=== PATIENT | female | born 1995 | race Caucasian/White ===

== ENCOUNTER 2016-08-03 13:06 | Outpatient (CLI) | payer MEDICAID ==
[2016-08-03] MEDS ORDERED: LACTATED RINGERS 500 ML IV ONE (13:48)
[2016-08-03 14:57] LABS: Bilirubin,Urine NEG (Negative); Blood,Urine NEG (Negative); Ketones,Urine NEG (Negative); Leukocyte Esterase,Urine NEG (Negative); Nitrite,Urine NEG (Negative); Protein,Urine <15 mg/dL mg/dL (Negative); Urobilinogen,Urine < 2.0 mg/dL (<2.0); WBC,Urine < 1.0 /HPF (0.0-6.0)
[2016-08-03 15:58] VITALS: BP 112/56
== END 2016-08-03 16:40 | disposition home or self-care (01) ==
LOC: TRG 13:06 → LD 14:29 → TRG 15:18
PROVIDERS: ATTEND Obstetrics & Gynecology
DX: O47.9 False labor, unspecified (principal); Z3A.00 Weeks of gestation of pregnancy not specified
CPT/HCPCS: 81001; 96360; 96361; J7120

== ENCOUNTER 2016-09-13 22:04 | Inpatient (IN) | payer MEDICAID ==
[~2016-09-13 22:04] MED LIST: NACL 0.9% IR ONE; WATER FOR IRRIG STERILE IR ONE
[2016-09-13] MEDS ORDERED: LACTATED RINGERS 1,000 ML ONE (22:17)
[2016-09-13] MEDS ORDERED: BICITRA ONE (22:53)
[2016-09-13] MEDS ORDERED: PITOCin/NS 20 UNIT/1000ML DRIP 20,000 MILLIUNITS/1,000 ML BAG IV ONE (22:53)
[2016-09-13] MEDS ORDERED: REGLAN ONE (22:54)
[2016-09-13] MEDS ORDERED: PEPCID IV ONE (22:54)
[2016-09-13] MEDS ORDERED: LACTATED RINGERS 1,000 ML IV SCH (23:00)
--- NOTE | 2016-09-13 23:02 | Anesthesia Day of Surgery ---
Anesthesia Day of Surgery - Day of Surgery Patient Examined: Yes Patient H&P Reviewed: Yes Patient is NPO: No (Will proceed due to urgency of surgery)
--- NOTE | 2016-09-13 23:02 | Anesthesia Consultation ---
Anesthesia Consult and Med Hx Date of service: 09/13/16 - Airway Anesthetic Teeth Evaluation: Good ROM Head & Neck: Adequate Mental/Hyoid Distance: Adequate Mallampati Class: Class II Intubation Access Assessment: Probably Good - Pulmonary Exam CTA: Yes - Cardiac Exam Cardiac Exam: RRR - Pre-Operative Health Status ASA Pre-Surgery Classification: ASA2 Proposed Anesthetic Plan: Epidural, Spinal - Pulmonary Hx Smoking: No Hx Asthma: Yes (as child) COPD: No Hx Pneumonia: No - Cardiovascular System Hx Hypertension: No - Central Nervous System Hx Seizures: No Hx Psychiatric Problems: No - Endocrine Hx Renal Disease: No Hx End Stage Renal Disease: No Hx Hypothyroidism: No Hx Hyperthyroidism: No - Hematic Hx Anemia: No Hx Sickle Cell Disease: No - Other Systems Hx Alcohol Use: No Hx Obesity: Yes
[2016-09-13 23:07] LABS: Basophils % (Auto) 0.2 % (0.0-1.8); Eosinophils % (Auto) 0.4 % (0.0-4.3); Hematocrit 35.4 % (30.3-42.9); Hemoglobin 11.8 gm/dl (10.1-14.3); Mean Corpuscular HGB Conc 33 % (30-34); Mean Corpuscular Hemoglobin 26 pg (28-32); Mean Corpuscular Volume 79 fl (79-97); Platelet Count 247 K/mm3 (140-440); Red Blood Count 4.48 M/mm3 (3.65-5.03); Red Cell Distribution Width 14.3 % (13.2-15.2); White Blood Count 12.6 K/mm3 (4.5-11.0)
[2016-09-13] MEDS ORDERED: ANCEF/STERILE WATER 2 GM/20 ML IV ONE (23:30)
[2016-09-13] MEDS ORDERED: MORPHINE ONE (23:30)
[2016-09-14] MEDS ORDERED: WATER FOR IRRIG STERILE IR ONE
[2016-09-14] MEDS ORDERED: NACL 0.9% IR ONE
[2016-09-14] MEDS ORDERED: ePHEDrine SULFATE ONE (00:02)
[2016-09-14] MEDS ORDERED: ZOFRAN ONE (00:06)
[2016-09-14] MEDS ORDERED: TORADOL ONE (00:49)
--- NOTE | 2016-09-14 01:05 | History and Physical Report ---
History of Present Illness Date of examination: 09/14/16 Date of admission: 09/13/16 23:16 Chief complaint: Rupture of membranes History of present illness: Pt is a 21yo HF EDC 09/16/16; EGA 39 5/7 weeks presents to L&D complaining of SROM @ 2200 followed by irregular contractions. She was scheduled for a Repeat C Section in the morning and received care at [facility]. records are not available and GBS is unknown. Past History Past Medical History: other (Morbid obesity) Past Surgical History: appendectomy, cholecystectomy, section (x2) Family/Genetic History: none Social history: no significant social history, single - Obstetrical History Expected Date of Delivery: 09/16/16 Actual Gestation: 39 Week(s) 5 Day(s) : 4 Medications and Allergies Allergies Allergy/AdvReac Type Severity Reaction Status Date / Time No Known Allergies Allergy Unverified 11/25/13 12:27 Home Medications Medication Instructions Recorded Confirmed Last Taken Type Vit-Fe Fumar-FA [ 1 each PO QDAY 11/26/13 06/20/15 Unknown History Vitamin] Ibuprofen [Motrin 600 MG tab] 600 mg PO Q6H PRN #30 tablet 11/27/13 06/20/15 Unknown Rx Vit-Fe Fumar-FA [ 1 each PO QDAY #60 tablet 11/27/13 06/20/15 Unknown Rx Vitamin] oxyCODONE /ACETAMINOPHEN [Percocet 1 tab PO Q6H PRN #30 tablet 11/27/13 Unknown Rx 5/325 mg] Acetaminophen [Acetaminophen 325 mg NM Q4HR PRN #30 supp 06/20/15 Unknown Rx SUPPOS] Ferrous Sulfate [Feosol 325 MG tab] 325 mg PO QDAY #60 tablet 06/20/15 Unknown Rx Active Meds: Active Medications Lactated Ringer's (Lactated Ringers) 1,000 mls @ 125 mls/hr IV DIRECT ALLI Review of Systems All systems: negative - Vital Signs Vital signs: Vital Signs Pulse Pulse Ox 97 H 99 09/13/16 22:09 09/13/16 22:09 Temp Pulse Resp BP Pulse Ox 98.1 F 96 H 18 147/86 97 09/13/16 22:17 09/13/16 23:11 09/13/16 22:17 09/13/16 22:17 09/13/16 23:11 - Physical Exam Breasts: Positive: deferred Cardiovascular: Regular rate Lungs: Positive: Clear to auscultation Abdomen: Positive: normal appearance Genitourinary (Female): Positive: normal external genitalia Uterus: Positive: enlarged Extremities: Positive: normal - Obstetrical FHR: category 1 Uterine Contraction Monitor Mode: External Results Result Diagrams: 09/13/16 22:40 Abnormal lab results 09/13/16 Range/Units 22:40 WBC 12.6 H (4.5-11.0) K/mm3 MCH 26 L (28-32) pg Seg Neutrophils % 77.7 H (40.0-70.0) % Seg Neutrophils # 9.8 H (1.8-7.7) K/mm3 All other labs normal. Assessment and Plan - Patient Problems (1) 39 weeks gestation of Onset Date: 09/14/16 Current Visit: Yes Status: Acute Plan to address problem: A: IUP @ 39 5/7 weeks in labor Previous C Section Morbid obesity Unknown GBS P: Admit to L&D for repeat C Section Obtain records (2) Previous delivery affecting Onset Date: 09/14/16 Current Visit: Yes Status: Acute (3) Morbid obesity Onset Date: 09/14/16 Current Visit: Yes Status: Acute Qualifiers: Obesity type: O
[2016-09-14] MEDS ORDERED: TORADOL IV PRN (01:09)
[2016-09-14] MEDS ORDERED: NORCO 5/325 PO PRN (01:09)
[2016-09-14] MEDS ORDERED: PHENERGAN PR PRN (01:09)
[2016-09-14] MEDS ORDERED: MILK OF MAGNESIA PO PRN (01:09)
[2016-09-14] MEDS ORDERED: LANSINOH TP PRN (01:09)
[2016-09-14] MEDS ORDERED: TUCKS PAD TP PRN (01:09)
[2016-09-14] MEDS ORDERED: NARCAN 0.4 MG/1 ML IV PRN ×2 (01:09→01:28)
[2016-09-14] MEDS ORDERED: ZOFRAN IV PRN (01:09)
[2016-09-14] MEDS ORDERED: SENOKOT PO PRN (01:09)
[2016-09-14] MEDS ORDERED: TYLENOL PO PRN (01:09)
[2016-09-14] MEDS ORDERED: MYLICON PO PRN (01:09)
--- NOTE | 2016-09-14 01:24 | Operative Report ---
Operative Report Operative Report: Date of procedure: 09/14/2016 Pre-operative diagnosis: 1. Intrauterine at 39 and 4/7 weeks in labor 2. Meconium fluid 3. Previous section 2 4. Morbid obesity Post-operative diagnosis: Same Procedure name(s): Repeat low transverse section Surgeon: Scott Short MD Special Education Para Professional: None Anesthesia: Spinal anesthesia by Dr. Saranya Vila EBL: 600 mL's Findings: A 4076 g female infant Apgars 8 at 1 minute 9 at 5 minutes. Thick meconium fluid. Normal uterus with lower uterine segment adhesions. Normal tubes and ovaries bilaterally. Procedure: After the patient was prepped and draped in usual sterile fashion, and after satisfactory level of epidural anesthesia was obtained, the skin knife was used to make a transverse skin incision through the previous skin scar. The incision was excised down to layer of the fascia, which was nicked in the midline and extended laterally using the Bovie cautery. The rectus muscles were dissected off the rectus fascia both superiorly and inferiorly. The rectus bellies in the midline, and the peritoneum was entered under direct visualization. The peritoneal incision was extended superiorly and inferiorly. A bladder flap was created and the bladder blade was then placed. The uterus was scored in a curvilinear linear fashion, entered in the midline revealing thick meconium amniotic fluid. The infant's head was delivered onto the surgical field with the aid of a vacuum, (2 pulls 1 pop-off) , and the oropharynx and nasopharynx were bulb suctioned. The rest of the infant's body was delivered, cord was doubly clamped and cut and the was handed to the waiting respiratory team. Cord blood was then obtained. The placenta was manually removed from the uterus, and the uterus removed from its normal anatomical position. After gentle uterine lavage, the incision was inspected and found to be without extensions. It was then closed in 2 layers using 0 Vicryl suture in a running interlocking fashion, the second layer imbricating the first. After good hemostasis was achieved, copious amounts or irrigation was performed, and the gutters were suctioned free of blood and blood clots. The Tisseel sealant was sprayed across the uterine incision. The uterus was then returned to its normal anatomical position, and after excellent hemostasis assured, the peritoneum was reapproximated using 3-0 Vicryl suture in a running interlocking fashion, and then the rectus muscles were reapproximated using 3-0 Vicryl suture in a [id number] configuration. The fascia was then reapproximated using 0 Vicryl suture in running interlocking fashion. The subcutaneous layer was made hemostatic using Bovie cautery, the Tisseel sealant was sprayed across the fascial incision and the skin edges reapproximated using 4-0 Vicryl suture in a subcuticular fashion. Patient tolerated the procedure well was transported to recovery in stable condition.
--- NOTE | 2016-09-14 01:28 | Post Anesthesia Evaluation ---
- Post Anesthesia Evaluation Patient Participated: Yes Airway Patent: Yes Stable Respiratory Function: Yes Nausea/Vomiting: No Temp > 96.8F: Yes Pain Manageable: Yes Adequeate Hydration: Yes Anesthesia Complications: No Block Receding Appropriately: Yes Patient on Ventilator: No
[2016-09-14] MEDS ORDERED: SODIUM CHLORIDE FLUSH SYRINGE 10 ML IV NR (02:00)
[2016-09-14] MEDS ORDERED: SODIUM CHLORIDE FLUSH SYRINGE 10 ML IV PRN (02:00)
[2016-09-14] MEDS ORDERED: PITOCin/NS 20 UNIT/1000ML DRIP 20 UNITS/1,000 ML BAG IV SCH (02:00)
[2016-09-14 05:39] LABS: Alanine Aminotransferase 20 units/L (7-56); Lactate Dehydrogenase 255 units/L (91-180); Uric Acid 5.5 mg/dL (3.5-7.6)
[2016-09-14 06:42] LABS: Bilirubin,Urine NEG (Negative); Blood,Urine SM (Negative); Ketones,Urine 20 mg/dL (Negative); Leukocyte Esterase,Urine TR (Negative); Mucus,Urine 3+ /HPF; Nitrite,Urine NEG (Negative)
[2016-09-14] MEDS: ANCEF/NS 1 GM/50 ML 1 GM/50 ML BAG IV SCH ×2 (07:34→15:04)
[2016-09-14] MEDS ORDERED: LACTATED RINGERS 1,000 ML IV SCH (09:00)
[2016-09-14] MEDS: PRENATAL VITAMIN PO SCH (10:53)
[2016-09-14] MEDS: FEOSOL PO SCH (10:53)
[2016-09-14 14:28] LABS: Hematocrit 30.4 % (30.3-42.9)
--- NOTE | 2016-09-14 14:40 | Progress Note ---
Subjective Date of service: 09/14/16 Interval history: The patient is 14 hours post c section. She states that she has not been able to ambulate yet. Some residual numbness from spinal in the left leg, however, states that the numbness has decreased from earlier today and has continued to get better. Right leg has no residual numbness. Patient is in no pain and has no other anesthetic complications. Objective - Constitutional Vitals: Vital Signs - 12hr 09/14/16 09/14/16 09/14/16 02:36 04:05 04:10 Temperature 98.2 F 98.0 F Pulse Rate 69 Pulse Rate [ 95 H 94 H From Monitor] Respiratory 24 20 20 Rate Blood Pressure 102/68 Blood Pressure 135/74 [Left Arm] Blood Pressure 115/60 [Right Arm] O2 Sat by Pulse 99 Oximetry 09/14/16 09/14/16 08:33 11:53 Temperature 98.3 F 98.8 F Pulse Rate Pulse Rate [ 88 88 From Monitor] Respiratory 20 20 Rate Blood Pressure Blood Pressure [Left Arm] Blood Pressure 110/66 104/50 [Right Arm] O2 Sat by Pulse Oximetry - Labs CBC & Chem 7: 09/14/16 14:03 09/13/16 22:40 Labs: Abnormal lab results 09/13/16 09/13/16 09/14/16 Range/Units 22:40 22:40 06:05 WBC 12.6 H (4.5-11.0) K/mm3 Hgb (10.1-14.3) gm/dl MCH 26 L (28-32) pg Seg Neutrophils % 77.7 H (40.0-70.0) % Seg Neutrophils # 9.8 H (1.8-7.7) K/mm3 Creatinine 0.5 L (0.7-1.2) mg/dL Lactate Dehydrogenase 255 H (91-180) units/L Ur Specific [place] 1.031 H (1.003-1.030) Urine WBC (Auto) 11.0 H (0.0-6.0) /HPF 09/14/16 Range/Units 14:03 WBC (4.5-11.0) K/mm3 Hgb 10.0 L (10.1-14.3) gm/dl MCH (28-32) pg Seg Neutrophils % (40.0-70.0) % Seg Neutrophils # (1.8-7.7) K/mm3 Creatinine (0.7-1.2) mg/dL Lactate Dehydrogenase (91-180) units/L Ur Specific [place] (1.003-1.030) Urine WBC (Auto) (0.0-6.0) /HPF
[2016-09-14] MEDS: MOTRIN PO PRN (17:52)
[2016-09-14] MEDS: PERCOCET 5/325 PO PRN (17:53)
[2016-09-15] MEDS: PERCOCET 5/325 PO PRN (00:37)
[2016-09-15] MEDS ORDERED: M-M-R II VACCINE SUB-Q ONE (01:10)
[2016-09-15] MEDS ORDERED: BOOSTRIX IM ONE (06:00)
--- NOTE | 2016-09-15 10:05 | Progress Note ---
Assessment and Plan POD 3 1 s/p Repeat LTCS -Doing well P: -Continue routine postop care -Anticipate discharge in 24-48 hours - Patient Problems (1) S/P repeat low transverse Current Visit: No Status: Acute Subjective - Subjective Date of service: 09/15/16 Principal diagnosis: POD # 1 Interval history: Patient seen and examined, stable doing well. No Chest pain or shortness of breath no fever chills adequate bowel bladder function Patient reports: appetite normal, voiding normally, pain well controlled, ambulating normally, no dizzy ambulation [place]: doing well Objective - Vital Signs Latest vital signs: Vital Signs Temp Pulse Resp BP BP 09/15/16 08:33 98.7 F 100 H 20 120/71 09/15/16 00:15 98.6 F 105 H 20 137/67 09/14/16 21:10 98.6 F 86 18 129/69 09/14/16 16:16 98.3 F 80 20 110/68 09/14/16 11:53 98.8 F 88 20 104/50 Intake and Output 09/14/16 09/15/16 09/15/16 22:59 06:59 14:59 Intake Total 720 360 Output Total 2700 400 Balance -1979 Intake: Oral 240 Intake, Free Water 480 360 Output: Urine 2700 400 Indwelling Catheter 500 Uretheral ([place]) 500 Void 1700 400 Other: Total, Intake Amount 240 Total, Output Amount 900 400 Voiding Method Toilet # Voids Void 1 1 - Exam Abdomen: Present: normal appearance, soft. Absent: distention, tenderness, guarding, mass, rigidity Uterus: Absent: tenderness Incision: Present: intact, dressed - Labs Labs: Abnormal lab results 09/14/16 Range/Units 14:03 Hgb 10.0 L (10.1-14.3) gm/dl
[2016-09-15] MEDS: PRENATAL VITAMIN PO SCH (10:06)
[2016-09-15] MEDS: FEOSOL PO SCH (10:06)
[2016-09-15] MEDS: MOTRIN PO PRN ×2 (10:06→15:57)
[2016-09-16] MEDS: PERCOCET 5/325 PO PRN ×2 (00:28→06:34)
--- NOTE | 2016-09-16 08:01 | Progress Note ---
Assessment and Plan POD 2 1 s/p Repeat LTCS -Doing well P: -Discharged home -Up in clinic in 2 weeks - Patient Problems (1) S/P repeat low transverse Current Visit: No Status: Acute Subjective - Subjective Date of service: 09/16/16 Principal diagnosis: POD # 2 Interval history: Patient seen and examined, stable doing well. No Chest pain or shortness of breath no fever chills adequate bowel bladder function Desires discharge home today Patient reports: appetite normal, voiding normally, pain well controlled, flatus , ambulating normally, no dizzy ambulation : doing well Objective - Vital Signs Latest vital signs: Vital Signs Temp Pulse Resp BP BP 09/16/16 00:00 98.6 F 72 22 144/70 09/15/16 15:58 98.5 F 97 H 20 117/81 09/15/16 08:33 98.7 F 100 H 20 120/71 Intake and Output 09/15/16 09/16/16 09/16/16 22:59 06:59 14:59 Intake Total 500 Balance 500 Intake: Oral 500 Other: Total, Intake Amount 500 # Voids Void 2 - Exam Lungs: Present: Clear to auscultation Abdomen: Present: normal appearance, soft. Absent: distention, tenderness, guarding, rigidity Uterus: Present: fundal height below umbilicus. Absent: tenderness Extremities: Present: normal Incision: Present: dry, intact
--- NOTE | 2016-09-16 08:03 | Discharge Summary ---
Providers - Providers Date of Admission: 09/13/16 23:16 Date of discharge: 09/16/16 Attending physician: SVETLANA HIGGINS Primary care physician: SVETLANA HIGGINS Hospitalization Reason for admission: section, rupture of membranes Delivery: Procedure: repeat low transverse Incision: dry, intact Other procedures: none complications: none Discharge diagnosis: IUP at term delivered [place] baby: female Hospital course: Uncomplicated hospital course Condition at discharge: Good Disposition: DISCHARGED TO HOME OR SELFCARE - Discharge Diagnoses (1) S/P repeat low transverse Status: Acute Plan - Discharge Medications Prescriptions: Ferrous Sulfate [Feosol 325 MG tab] 325 mg PO BID #60 tablet HYDROcodone/APAP 5-325 [[place] 5/325] 1 each PO Q6HR PRN #30 tablet PRN Reason: Pain Ibuprofen [Motrin] 800 mg PO Q8HR PRN #30 tablet PRN Reason: Moder Pain Unrelieved By [place] Vit W-Ca,Fe,FA(<1 mg) [ Vitamins] 1 each PO DAILY #30 tablet - Provider Discharge Summary Activity: no sex for 6 weeks, no heavy lifting 4 weeks, no strenuous exercise Diet: routine Additional instructions: [] Smoking cessation referral if applicable(refer to patient education folder for contact #) [] Refer to [facility]'s [facility] Booklet Call your doctor immediately for: * Fever > 100.5 * Heavy vaginal bleeding ( >1 pad per hour) * Severe persistent headache * Shortness of breath * Reddened, hot, painful area to leg or breast * Drainage or odor from incision. * Keep incision clean and dry at all times and follow doctor's instructions regarding bathing/showering - Follow up plan Follow up: SVETLANA HIGGINS MD [Primary Care Provider] - 14 Days
[2016-09-16 08:08] VITALS: BP 116/57
[2016-09-16] MEDS: PRENATAL VITAMIN PO SCH (09:43)
[2016-09-16] MEDS: FEOSOL PO SCH (09:44)
== END 2016-09-16 11:40 | disposition home or self-care (01) | DRG 765 ==
LOC: TRG 22:04 → APU 23:16 → OB 09-14 05:16 → EDSTATUS 09-14 11:30
PROVIDERS: ADMIT Obstetrics & Gynecology; ATTEND Obstetrics & Gynecology
PROC: 10D00Z1 Extraction of Products of Conception, Low, Open Approach (ICD-10-PCS; principal; 2016-09-14)
DX: O42.02 Full-term premature rupture of membranes, onset of labor within 24 hours of rupture (principal); Z68.43 Body mass index [BMI] 50.0-59.9, adult; O34.211 Maternal care for low transverse scar from previous cesarean delivery; O77.0 Labor and delivery complicated by meconium in amniotic fluid; O99.214 Obesity complicating childbirth; E66.01 Morbid (severe) obesity due to excess calories; Z3A.39 39 weeks gestation of pregnancy; Z37.0 Single live birth; Z90.49 Acquired absence of other specified parts of digestive tract
CPT/HCPCS: 36415; 81001; 82565; 83615; 84450; 84460; 84550; 85014; 85018; 85025; 86850; 86900; 86901; 99211; G0463; J0690; J1885; J2270; J2405; J2590; J2765; J7120

== ENCOUNTER 2019-04-22 06:06 | Inpatient (IN) | payer MEDICAID ==
[2019-04-22] MEDS ORDERED: BICITRA PO ONE (06:19)
[2019-04-22] MEDS ORDERED: PEPCID IV ONE (06:19)
[2019-04-22] MEDS ORDERED: REGLAN IV ONE (06:19)
[2019-04-22] MEDS ORDERED: LACTATED RINGERS 1,000 ML IV SCH (07:00)
[2019-04-22] MEDS ORDERED: ANCEF/STERILE WATER 2 GM/20 ML 2 GM/20 ML SYRINGE IV NR (07:00)
[2019-04-22] MEDS ORDERED: PITOCin/NS 20 UNIT/1000ML DRIP 20 UNITS/1,000 ML BAG IV SCH ×2 (07:00→12:00)
--- NOTE | 2019-04-22 07:03 | History and Physical Report ---
History of Present Illness Date of examination: 04/22/19 Date of admission: 04/22/19 06:06 Chief complaint: Repeat C Section History of present illness: Pt is a 23yo HF EDC 04/22/19; EGA 40 0/7 weeks presents for a Repeat C Section. She received care at [facility] since 20 weeks and co-managed by [facility] for Morbid Obesity and previous C Section x 3. records are available and GBS is Negative. Past History Past Medical History: other (Morbid obesity) Past Surgical History: appendectomy, cholecystectomy, section (x3) Family/Genetic History: none Social history: no significant social history, single - Obstetrical History Expected Date of Delivery: 04/22/19 Actual Gestation: 40 Week(s) 0 Day(s) : 4 Medications and Allergies Allergies Allergy/AdvReac Type Severity Reaction Status Date / Time No Known Allergies Allergy Unverified 11/25/13 12:27 Home Medications Medication Instructions Recorded Confirmed Last Taken Type Vit-Fe Fumar-FA [ 1 each PO QDAY 11/26/13 09/14/16 Unknown History Vitamin] Ibuprofen [Motrin 600 MG tab] 600 mg PO Q6H PRN #30 tablet 11/27/13 09/14/16 Unknown Rx Vit-Fe Fumar-FA [ 1 each PO QDAY #60 tablet 11/27/13 09/14/16 Unknown Rx Vitamin] oxyCODONE /ACETAMINOPHEN [Percocet 1 tab PO Q6H PRN #30 tablet 11/27/13 09/14/16 Unknown Rx 5/325 mg] Acetaminophen [Acetaminophen 325 mg [place] Q4HR PRN #30 supp 06/20/15 09/14/16 Unknown Rx SUPPOS] Ferrous Sulfate [Feosol 325 MG tab] 325 mg PO QDAY #60 tablet 06/20/15 09/14/16 Unknown Rx Ferrous Sulfate [Feosol 325 MG tab] 325 mg PO BID #60 tablet 09/14/16 Unknown Rx HYDROcodone/APAP 5-325 [[place] 1 each PO Q6HR PRN #30 tablet 09/14/16 Unknown Rx 5/325] Ibuprofen [Motrin] 800 mg PO Q8HR PRN #30 tablet 09/14/16 Unknown Rx Vit Calc,Iron,Folic 1 each PO DAILY #30 tablet 03/17/17 Unknown Rx [ Vitamins] Review of Systems All systems: negative - Vital Signs Vital signs: Vital Signs Pulse BP 80 115/63 04/22/19 06:49 04/22/19 06:49 Temp Pulse Resp BP Pulse Ox 80 115/63 04/22/19 06:49 04/22/19 06:49 - Physical Exam Breasts: Positive: deferred Cardiovascular: Regular rate Lungs: Positive: Clear to auscultation Abdomen: Positive: normal appearance Genitourinary (Female): Positive: normal external genitalia Vagina: Positive: normal moisture Uterus: Positive: enlarged Extremities: Positive: normal - Obstetrical FHR: category 1 Uterine Contraction Monitor Mode: External Uterine Contraction Pattern: Absent Results Result Diagrams: 04/22/19 07:00 All other labs normal. Assessment and Plan - Patient Problems (1) 40 weeks gestation of Onset Date: 04/22/19 Current Visit: Yes Status: Acute Plan to address problem: A: IUP @ 40 0/7 weeks Previous C Section x 3 Morbid Obesity P: Admit to L&D for Repeat C Section (2) Morbid obesity Onset Date: 04/22/19 Current Visit: No Status: Chronic (3) Previous delivery affecting Onset Date: 04/22/19 Current Visit: No Status: Chronic
[2019-04-22] MEDS ORDERED: DEXMEDETOMIDINE IV ONE (07:18)
[2019-04-22 07:31] LABS: Basophils % (Auto) 0.3 % (0.0-1.8); Eosinophils # (Auto) 0.1 K/mm3 (0.0-0.4); Eosinophils % (Auto) 0.9 % (0.0-4.3); Hematocrit 38.3 % (30.3-42.9); Lymphocytes # (Auto) 1.9 K/mm3 (1.2-5.4); Lymphocytes % (Auto) 20.5 % (13.4-35.0); Mean Corpuscular HGB Conc 34 % (30-34); Mean Corpuscular Volume 83 fl (79-97); Monocytes # (Auto) 0.5 K/mm3 (0.0-0.8); Monocytes % (Auto) 5.2 % (0.0-7.3); Platelet Count 173 K/mm3 (140-440); Red Blood Count 4.61 M/mm3 (3.65-5.03); Red Cell Distribution Width 14.1 % (13.2-15.2)
--- NOTE | 2019-04-22 07:33 | Anesthesia Day of Surgery ---
Anesthesia Day of Surgery - Day of Surgery Patient Examined: Yes Patient H&P Reviewed: Yes Patient is NPO: Yes Beta Blockers: No Cardiac Clearance: No Pulmonary Clearance: No Choco's Test: N/A
[2019-04-22] MEDS ORDERED: SODIUM CHLORIDE FLUSH SYRINGE 10 ML IV PRN (08:00)
[2019-04-22] MEDS ORDERED: DILAUDID IV PRN ×2 (08:30)
[2019-04-22] MEDS ORDERED: NALOXONE IV PRN ×2 (08:30→11:45)
[2019-04-22] MEDS ORDERED: BENADRYL IV PRN (08:30)
[2019-04-22] MEDS ORDERED: ZOFRAN IV PRN (08:30)
[2019-04-22] MEDS ORDERED: WATER FOR IRRIG STERILE IR ONE (10:25)
[2019-04-22] MEDS ORDERED: NACL 0.9% IR ONE (10:25)
[2019-04-22] MEDS ORDERED: TORADOL ONE (11:07)
[2019-04-22] MEDS ORDERED: ZOFRAN ONE (11:07)
[2019-04-22] MEDS ORDERED: NEO SYNEPHRINE ONE (11:07)
--- NOTE | 2019-04-22 11:41 | Operative Report ---
Operative Report Operative Report: Date of procedure: 04/22/2019 Pre-operative diagnosis: 1. Intrauterine at 40 0/7 weeks 2. Previ ous C Section x 3 Post-operative diagnosis: Same with lower uterine segment adhesions Procedure name(s): Repeat low transverse section Surgeon: Scott Short MD Concrete Spreader: None Anesthesia: Spinal anesthesia by Nilam Roach CRNA EBL: 600 mL's Findings: A 3979 gm male infant Apgars 8 at 1 minute and 9 at 5 minutes. Clear amniotic fluid. Normal uterus with lower uterine segment adhesions and normal tubes and ovaries bilaterally. Procedure: After the patient was prepped and draped in usual sterile fashion, and after a satisfactory level of spinal anesthesia was obtained, the skin knife was used to make a transverse skin incision through the previous skin scars. The incision was excised down to layer of the fascia, which was nicked in the midline and extended laterally using the Bovie cautery. The rectus muscles were dissected off the rectus fascia both superiorly and inferiorly. The rectus bellies in the midline, and the peritoneum was entered under direct visualization. The peritoneal incision was extended superiorly and inferiorly. The uterus was scored in a curvilinear linear fashion, entered in the midline revealing clear amniotic fluid. The 's head was delivered onto the surgical field with the aid of a vacuum and extension of the uterine incision with bandage scissors, and the oropharynx and nasopharynx were bulb suctioned. The rest of the infant's body was delivered, cord was doubly clamped and cut and the infant was handed to the waiting respiratory team. Cord blood was then obtained. The placenta was manually removed from the uterus and the uterus removed from its normal anatomical position. After gentle uterine lavage, the incision was inspected and found no further extensions. It was then closed in 2 layers using 0 Vicryl suture in a running interlocking fashion, the second layer imbricating the first. After good hemostasis was achieved, copious amounts or irrigation was performed, and the gutters were suctioned free of blood and blood clots. The Tisseal sealant was sprayed across the uterine incision and excellent hemostasis was assured. The uterus was then returned to its normal anatomical position, and after excellent hemostasis assured, the peritoneum was re-approximated using 3-0 Vicryl suture in a running interlocking fashion, and then the rectus muscles were re-approximated using 3-0 Vicryl suture in a [id number] configuration. The fascia was then re-approximated using 0 Vicryl suture in running interlocking fashion. The subcutaneous layer was made hemostatic using Bovie cautery and re-approximated using 3-0 vicyl suture, then the skin edges re-approximated using 4-0 Vicryl suture in a sub-cuticular fashion. Patient tolerated the procedure well was transported to recovery in s table condition.
[2019-04-22] MEDS ORDERED: TYLENOL PO PRN (11:45)
[2019-04-22] MEDS ORDERED: SENOKOT PO PRN (11:45)
[2019-04-22] MEDS ORDERED: MYLICON PO PRN (11:45)
[2019-04-22] MEDS ORDERED: MILK OF MAGNESIA PO PRN (11:45)
[2019-04-22] MEDS ORDERED: LANSINOH TP PRN (11:45)
[2019-04-22] MEDS ORDERED: NORCO 5/325 PO PRN (11:45)
[2019-04-22] MEDS ORDERED: TUCKS PAD TP PRN (11:45)
--- NOTE | 2019-04-22 11:55 | Post Anesthesia Evaluation ---
- Post Anesthesia Evaluation Patient Participated: Yes Nausea/Vomiting: No Temp > 96.8F: Yes Pain Manageable: Yes Adequeate Hydration: Yes Anesthesia Complications: No Block Receding Appropriately: Yes Patient on Ventilator: No
[2019-04-22] MEDS ORDERED: D5LR 1,000 ML IV SCH (12:00)
[2019-04-22] MEDS ORDERED: SODIUM CHLORIDE FLUSH SYRINGE 10 ML IV SCH (12:00)
[2019-04-22] MEDS: TORADOL IV PRN ×2 (16:55→23:14)
[2019-04-22] MEDS: ANCEF/NS 1 GM/50 ML 1 GM/50 ML BAG IV SCH (23:17)
[2019-04-22 23:50] LABS: Hematocrit 32.2 % (30.3-42.9); Hemoglobin 11.3 gm/dl (10.1-14.3)
[2019-04-23] MEDS: PERCOCET 5/325 PO PRN ×4 (00:03→20:03)
[2019-04-23] MEDS: TORADOL IV PRN ×3 (04:16→17:23)
[2019-04-23] MEDS ORDERED: BOOSTRIX IM ONE (06:00)
[2019-04-23] MEDS: ANCEF/NS 1 GM/50 ML 1 GM/50 ML BAG IV SCH (06:03)
--- NOTE | 2019-04-23 08:45 | Progress Note ---
Assessment and Plan - Patient Problems (1) 40 weeks gestation of Onset Date: 04/22/19 Current Visit: Yes Status: Resolved (2) Morbid obesity Onset Date: 04/22/19 Current Visit: No Status: Chronic (3) Previous delivery affecting Onset Date: 04/22/19 Current Visit: No Status: Chronic (4) S/P repeat low transverse Onset Date: 04/23/19 Current Visit: No Status: Resolved Plan to address problem: A: S/P Repeat C Section - POD #1 Doing well Asymptomatic anemia - stable P: Continue RPOC Anticipate discharge in 24-48hrs Subjective - Subjective Date of service: 04/23/19 Principal diagnosis: s/p Repeat C Section - POD #1 Interval history: Pt is feeling well without complaints. Bleeding has improved. Patient reports: appetite normal, voiding normally, pain well controlled, ambulating normally, no dizzy ambulation, no flatus, no nauseated [place]: doing well, bottle feeding Objective - Vital Signs Latest vital signs: Vital Signs Temp Pulse Resp BP BP Pulse Ox 04/23/19 04:35 98.2 F 77 18 110/63 97 04/23/19 02:20 98.0 F 77 18 107/59 97 04/22/19 20:55 98.6 F 92 H 18 107/56 96 04/22/19 17:27 99.0 F 79 18 111/68 04/22/19 13:38 97.6 F 62 16 113/61 100 04/22/19 12:51 97.7 F 69 16 90/40 98 04/22/19 12:45 69 15 83/42 95 04/22/19 12:31 69 13 100/37 100 04/22/19 12:17 63 13 87/43 98 04/22/19 12:01 65 14 89/38 98 04/22/19 11:56 66 18 96/37 98 04/22/19 11:48 97.8 F 69 18 91/47 98 Intake and Output 04/22/19 04/23/19 04/23/19 22:59 06:59 14:59 Intake Total 600 530 Output Total 800 600 Balance -200 -70 Intake: IV 50 ANCEF/NS 1 GM/50 ML 1 gm 50 In 50 ml @ 100 mls/hr IV Q8H [facility] Rx#:[id number] Oral 600 480 Output: Urine 800 600 Indwelling Catheter 800 Void 600 Other: Total, Intake Amount 120 240 Total, Output Amount 800 600 - Exam Breasts: Present: deferred Abdomen: Present: normal appearance, soft Uterus: Present: normal, firm, fundal height below umbilicus Extremities: Present: normal Incision: Present: normal, dry, intact, dressed - Labs Labs: Laboratory Tests 04/22/19 04/22/19 04/22/19 07:00 07:00 23:30 WBC 9.1 RBC 4.61 Hgb 13.0 11.3 Hct 38.3 32.2 D MCV 83 MCH 28 MCHC 34 RDW 14.1 Plt Count 173 Lymph % (Auto) 20.5 [place] % (Auto) 5.2 Eos % (Auto) 0.9 Baso % (Auto) 0.3 Lymph # 1.9 [place] # 0.5 Eos # 0.1 Baso # 0.0 Seg Neutrophils % 73.1 H Seg Neutrophils # 6.7 Syphilis IgG Antibody Blood Type O POSITIVE Antibody Screen Negative 04/22/19 Unknown WBC RBC Hgb Hct MCV MCH MCHC RDW Plt Count Lymph % (Auto) [place] % (Auto) Eos % (Auto) Baso % (Auto) Lymph # [place] # Eos # Baso # Seg Neutrophils % Seg Neutrophils # Syphilis IgG Antibody Non-reactive Blood Type Antibody Screen
[2019-04-23] MEDS: FEOSOL PO SCH (10:28)
[2019-04-23] MEDS: PRENATAL VITAMIN PO SCH (10:30)
[2019-04-23] MEDS ORDERED: M-M-R II VACCINE SUB-Q ONE (11:47)
[2019-04-24] MEDS: IBUPROFEN PO PRN ×3 (00:02→21:46)
--- NOTE | 2019-04-24 08:21 | Progress Note ---
Assessment and Plan - Patient Problems (1) 40 weeks gestation of Onset Date: 04/22/19 Current Visit: Yes Status: Acute (2) Morbid obesity Onset Date: 04/22/19 Current Visit: Yes Status: Chronic (3) Previous delivery affecting Onset Date: 04/22/19 Current Visit: No Status: Chronic (4) S/P repeat low transverse Onset Date: 04/23/19 Current Visit: No Status: Resolved Plan to address problem: A: S/P Repeat C Section - POD #2 Doing well Asymptomatic anemia - stable P: May go home tomorrow. Subjective - Subjective Date of service: 04/24/19 Principal diagnosis: s/p Repeat C Section - POD #2 Interval history: Pt is feeling well without complaints. Bleeding has improved. She is tolerating a reg diet without nausea or vomiting, ambulating and voiding without difficulty. Patient reports: appetite normal, voiding normally, pain well controlled, flatus, ambulating normally, no dizzy ambulation, no nauseated : doing well, nursing well, bottle feeding Objective - Vital Signs Latest vital signs: Vital Signs Temp Pulse Resp BP BP Pulse Ox 04/24/19 00:10 98.4 F 78 18 108/72 97 04/23/19 16:19 98.7 F 88 20 122/58 96 Intake and Output 04/23/19 04/24/19 04/24/19 22:59 06:59 14:59 Intake Total 120 360 Balance 120 360 Intake: Oral 120 360 Other: Total, Intake Amount 120 120 # Voids Void 1 1 - Exam Breasts: Present: deferred Abdomen: Present: normal appearance, soft Uterus: Present: normal, firm, fundal height below umbilicus Extremities: Present: normal Incision: Present: normal, dry, intact
--- NOTE | 2019-04-24 08:23 | Discharge Summary ---
Providers - Providers Date of Admission: 04/22/19 06:06 Date of discharge: 04/25/19 Attending physician: SVETLANA HIGGINS Primary care physician: SVETLANA HIGGINS Hospitalization Reason for admission: section, IUP at term Delivery: Procedure: section, repeat low transverse Episiotomy: none Laceration: none Incision: normal, dry, intact Other procedures: none complications: none Discharge diagnosis: IUP at term delivered [place] baby: male Hospital course: Pt is a 23yo HF EDC 04/22/19; EGA 40 0/7 weeks who presented for a Repeat C Section. She received care at [facility] since 20 weeks and co-managed by [facility] for Morbid Obesity and previous C Section x 3. She underwent an uncomplicated Repeat C Section and tolerated the procedure well. By POD #2 she was tolerating a reg diet without nausea or vomiting, ambulating and voiding without difficulty. She was therefore discharged to home on POD #3 in stable condition. Condition at discharge: Good Disposition: DC-[id number] TO HOME OR SELFCARE - Discharge Diagnoses (1) 40 weeks gestation of Status: Resolved (2) Morbid obesity Status: Chronic (3) Previous delivery affecting Status: Chronic (4) S/P repeat low transverse Status: Resolved Plan - Discharge Medications Prescriptions: Ferrous Sulfate [Feosol 325 MG tab] 325 mg PO BID #60 tablet Ibuprofen [Motrin 800 MG tab] 800 mg PO Q6H PRN #30 tablet PRN Reason: Pain, Mild (1-3) HYDROcodone/APAP 5-325 [[place] 5-325 mg TAB] 1 each PO Q4H PRN #30 tablet PRN Reason: Pain, Moderate (4-6) Vit-Fe Fumar-FA [ Vitamin] 1 each PO QDAY #30 tablet - Provider Discharge Summary Activity: routine, no sex for 6 weeks, no heavy lifting 4 weeks, no strenuous exercise Diet: routine Instructions: routine Additional instructions: [] Smoking cessation referral if applicable(refer to patient education folder for contact #) [] Refer to [facility] Booklet Call your doctor immediately for: * Fever > 100.5 * Heavy vaginal bleeding ( >1 pad per hour) * Severe persistent headache * Shortness of breath * Reddened, hot, painful area to leg or breast * Drainage or odor from incision. * Keep incision clean and dry at all times and follow doctor's instructions regarding bathing/showering - Follow up plan Follow up: SVETLANA HIGGINS MD [Primary Care Provider] - 14 Days SILVINO GREEN NP [Referring] - 14 Days
[2019-04-24] MEDS: PERCOCET 5/325 PO PRN ×3 (10:49→23:10)
[2019-04-24] MEDS: PRENATAL VITAMIN PO SCH (10:50)
[2019-04-24] MEDS: FEOSOL PO SCH (10:50)
[2019-04-25] MEDS: PRENATAL VITAMIN PO SCH (09:28)
[2019-04-25] MEDS: FEOSOL PO SCH (09:29)
[2019-04-25] MEDS: IBUPROFEN PO PRN (09:29)
[2019-04-25 12:36] VITALS: BP 114/65
== END 2019-04-25 15:28 | disposition home or self-care (01) | DRG 766 ==
LOC: APU 06:06 → OB 13:19
PROVIDERS: ADMIT Obstetrics & Gynecology; ATTEND Obstetrics & Gynecology
PROC: 10D00Z1 Extraction of Products of Conception, Low, Open Approach (ICD-10-PCS; principal; 2019-04-22)
PROC: 3E0234Z Introduction of Serum, Toxoid and Vaccine into Muscle, Percutaneous Approach (ICD-10-PCS; 2019-04-23)
DX: O34.211 Maternal care for low transverse scar from previous cesarean delivery (principal); Z3A.40 40 weeks gestation of pregnancy; Z37.0 Single live birth; E66.01 Morbid (severe) obesity due to excess calories; Z71.3 Dietary counseling and surveillance; Z23 Encounter for immunization; Z90.49 Acquired absence of other specified parts of digestive tract; O99.214 Obesity complicating childbirth; O90.81 Anemia of the puerperium; D64.9 Anemia, unspecified
CPT/HCPCS: 36415; 85014; 85018; 85025; 86592; 86850; 86900; 86901; G0378; J0690; J1170; J1885; J2370; J2405; J2590; J2765; J3490; J7120; J7121